=== PATIENT | male | born 1980 | race Caucasian/White ===

== ENCOUNTER 2019-01-13 19:28 | Emergency (ER) | payer OTHER ==
[2019-01-13] MEDS ORDERED: LIDOCAINE 1% (MDV) 10 ML INJ INJ (23:29)
[2019-01-13] MEDS: KETOROLAC 30 MG INJ IM (23:39)
[2019-01-13] MEDS: LIDOCAINE 1% (MDV) 20 ML INJ INJ (23:45)
== END 2019-01-14 01:46 | disposition home or self-care (01) ==
LOC: FTE 19:28
DX: S01.411A Laceration without foreign body of right cheek and temporomandibular area, initial encounter (principal); X58.XXXA Exposure to other specified factors, initial encounter; Y92.310 Basketball court as the place of occurrence of the external cause
CPT/HCPCS: 12011; 96372; 99284-25

== ENCOUNTER 2019-01-19 08:13 | Emergency (ER) | payer OTHER | END 2019-01-19 09:34 | disposition home or self-care (01) | LOC: FTE 09:34 | DX: Z48.02 Encounter for removal of sutures (principal) | CPT/HCPCS: 99281 ==